=== PATIENT | female | born 1940 | race Caucasian/White ===

== ENCOUNTER 2021-04-02 00:52 | Inpatient (IN) | payer MEDICARE, OTHER ==
[~2021-04-02] VITALS: Ht 154.9 cm; Wt 50.2 kg
--- NOTE | 2021-04-02 00:52 | NUR ---
Patient BIBA from home. Found down by son. Per son, last seen normal a few hours ago. Per son, patient's only hx is of HTN which she refuses to take medication for. On arrival, patient unresponsive, GCS 3. Patient not maintaining airway well. Events as follows: 0050 18g LAC 0058 Defibrillation at 200J 0059 Defibrillation at 200J 0100 100mg Rocuronium, 20mg Etomidate 0107 7.0 ETT, 22cm at the teeth 0108 300mg Amiodarone IVP 0111 650mg APAP 0141 16f NG R nare 0148 16f ruelas catheter
[2021-04-02] MEDS ORDERED: ETOMIDATE 20 MG/10 ML ONE (01:00)
[2021-04-02] MEDS ORDERED: AMIODARONE 50 MG/ML, 3ML ONE (01:00)
[2021-04-02] MEDS ORDERED: PROPOFOL 10 MG/ML, 100ML IV ONE (01:00)
[2021-04-02] MEDS ORDERED: ROCURONIUM 10MG/ML,5ML ONE (01:00)
[2021-04-02] MEDS ORDERED: ACETAMINOPHEN 650 MG SUPP ONE (01:11)
--- NOTE | 2021-04-02 01:20 | NUR ---
Patient to CT. Spoke with son, Checo, and updated him on patient's status and plan of care. Advised patient that Dr. Chao would speak with him after CT result. Son understood.
[2021-04-02] MEDS ORDERED: ACETAMINOPHEN 650 MG SUPP PR ONE (01:30)
[2021-04-02] MEDS ORDERED: PLEASE ENTER HEIGHT AND WEIGHT MC SCH (01:30)
[2021-04-02] MEDS ORDERED: FILTER 0.22 MICRON IV ONE (01:30)
[2021-04-02] MEDS ORDERED: CEFTRIAXONE 1,000 MG in DEXTROSE 5% 50 ML IVPB ONE (01:30)
[2021-04-02] MEDS ORDERED: AMIODARONE 450 MG in DEXTROSE 5% 241 ML IV PRN (01:30)
[2021-04-02] MEDS ORDERED: PLEASE ENTER ALLERGIES MC SCH (01:30)
[2021-04-02 01:36] LABS: BASOPHILS % (AUTO) 1 % (0-1); EOSINOPHILS % (AUTO) 0 % (1-7); LYMPHOCYTES % (AUTO) 10 % (22-44); MEAN CORPUSCULAR HEMOGLOBIN 28.7 pg (27.0-34.8); MEAN CORPUSCULAR HGB CONC 32.5 g/dL (32.4-35.8); MEAN PLATELET VOLUME 7.3 fL (7.4-10.4); MONOCYTES % (AUTO) 5 % (2-9); NEUTROPHILS % (AUTO) 85 % (42-75); PLATELET COUNT 432 x10^3/uL (130-400); RED BLOOD COUNT 3.62 x10^6/uL (3.82-5.3); RED CELL DISTRIBUTION WIDTH 15.7 % (9.6-15.2)
[2021-04-02 01:56] LABS: ALANINE AMINOTRANSFERASE 19 U/L (12-78); ALBUMIN 3.1 g/dL (3.4-5.0); ANION GAP 9 mmol/L (5-15); CALCIUM 8.4 mg/dL (8.5-10.1); CHLORIDE 104 mmol/L (98-107)
[2021-04-02 01:59] LABS: ALKALINE PHOSPHATASE 124 U/L (45-117); BILIRUBIN,TOTAL 0.3 mg/dL (0.2-1.0); CREATINE KINASE, TOTAL 60 U/L (26-192); CREATININE 0.76 mg/dL (0.55-1.02); TOTAL PROTEIN 8.6 g/dL (6.4-8.2)
[2021-04-02] MEDS ORDERED: PROPOFOL 100 ML IV PRN ×2 (02:00→02:30)
[2021-04-02 02:01] LABS: TROPONIN I 0.268 ng/mL (0.000-0.045)
--- NOTE | 2021-04-02 02:05 | NUR ---
Dr. Chao updated son, Checo, about CT and options. It was decided that patient would be a DNR and put on comfort care. However, patient has a second son who was working and would be off work at 0700. In the meantime, patient is to remain intubated with Nicardipine and Amiodarone continuing. Son remains at bedside.
--- NOTE | 2021-04-02 02:20 | NUR ---
Dr. Allen, hospitalist, at bedside to discuss further POC with son. Propofol tbdc and Fentayl drip to be started.
[2021-04-02 02:26] LABS: INTERNATIONAL NORMALIZED RATIO 0.99 (0.93-1.1); PROTHROMBIN TIME 10.6 Seconds (9.6-11.5)
[2021-04-02] MEDS ORDERED: ONDANSETRON 2MG/ML, 2ML IVPush PRN ×2 (02:30→10:00)
[2021-04-02] MEDS ORDERED: FENTANYL PF 1,000 MCG in SODIUM CHLORIDE 0.9% 80 ML IV PRN (02:30)
[2021-04-02] MEDS ORDERED: LABETALOL 5MG/ML, 20ML IVPush PRN (02:30)
[2021-04-02] MEDS ORDERED: LIDOCAINE-MPF 1%, 2ML ENDO PRN (02:30)
[2021-04-02] MEDS ORDERED: morphine SULFATE 10 MG/ML, 1ML IVPush PRN (02:30)
[2021-04-02] MEDS ORDERED: PHARMACY MAY ADJ FOR RENAL FX MC SCH (02:30)
[2021-04-02] MEDS ORDERED: MIDAZOLAM 1 MG/ML, 2ML IVPush PRN (02:30)
[2021-04-02] MEDS ORDERED: ACETAMINOPHEN 650 MG SUPP PR PRN (02:30)
--- NOTE | 2021-04-02 03:59 | NUR ---
Moved patient to a CCU bed in TR01 for patient comfort. Son at bedside.
--- NOTE | 2021-04-02 05:15 | NUR ---
Son at bedside. No needs at this time.
--- NOTE | 2021-04-02 06:56 | NUR ---
Report to ROBERT Finch. Patient care transferred. Checo, son, advised that his brother would arrive around 0715.
--- NOTE | 2021-04-02 07:00 | NUR ---
assumed care of pt. report from Keshia JONES. pt here for resp. failure and brain bleed. per report pt was inubated early this AM D/T low GCS score. pt son at bedside is planning to withdraw care after the pending arrival of his brother. pt is currently intubated. vent settings: rate: A/C@14 tidal volume: 350 O2: 50% PEEP: 5 pt has nicardipine gtt, fentanyl gtt and amiodarone gtt running at this time. resting. no apparent distress pt is currently CCU hold
--- NOTE | 2021-04-02 07:20 | NUR ---
Dr. Hopkins at bedside
--- NOTE | 2021-04-02 07:58 | NUR ---
no changes. pt resting with son at bedside per TO from Dr. Hopkins, all gtts to continue pending possible organ donation discussion pharmacy notified that amiodarone gtt needed
--- NOTE | 2021-04-02 08:27 | NUR ---
pt other son Ángel at bedside. pt family updated on POC. pt family now requesting [facility] services. Emergency Care Attendant services contacted Dr Hopkins called
--- NOTE | 2021-04-02 09:09 | NUR ---
[facility] Chaplain Buenrostro at bedside
--- NOTE | 2021-04-02 09:25 | NUR ---
Palliative care at bedside
--- NOTE | 2021-04-02 09:40 | NUR ---
Dr Hopkins at bedside to discuss end of life care with sons at bedside
[2021-04-02] MEDS ORDERED: MORPHINE SULFATE 4 MG/ML, 1ML IVPush PRN (10:00)
[2021-04-02] MEDS ORDERED: MORPHINE 30MG/30ML PCA.SYR IV PRN (10:00)
[2021-04-02] MEDS ORDERED: LORazepam 2 MG/ML, 1ML IVPush PRN (10:00)
[2021-04-02] MEDS ORDERED: LORazepam 2 MG/ML, 1ML IV ONE (10:00)
[2021-04-02] MEDS ORDERED: MORPHINE SULFATE 4 MG/ML, 1ML IV ONE (10:00)
[2021-04-02] MEDS ORDERED: LORazepam 2 MG/ML, 1ML IVPush SCH (10:00)
[2021-04-02] MEDS ORDERED: ATROPINE OPHTH SOLN 1%, 5ML PO PRN (10:00)
--- NOTE | 2021-04-02 10:13 | NUR ---
[facility] contacted at [phone] spoke to Malik
--- NOTE | 2021-04-02 10:22 | NUR ---
referral #[id number] Malik Alfaro @ [facility] per [facility], OK to proceed with family eminent wishes of withdrawing care at this time
--- NOTE | 2021-04-02 10:25 | NUR ---
Berevement tray delivered to bedside. pt adrian Casillas and Ángel at bedside have been updated on POC. both agree to proceed with Comfort Care measures
[2021-04-02] MEDS ORDERED: ONDANSETRON 2MG/ML, 2ML ONE (10:28)
[2021-04-02] MEDS ORDERED: MORPHINE SULFATE 4 MG/ML, 1ML ONE ×2 (10:28→11:08)
[2021-04-02] MEDS ORDERED: LORazepam 2 MG/ML, 1ML ONE (10:28)
--- NOTE | 2021-04-02 10:30 | NUR ---
al IV gtts have been D/C
--- NOTE | 2021-04-02 10:45 | NUR ---
Rad RT at bedside for extubation. all monitoring equipment has been removed
--- NOTE | 2021-04-02 11:10 | NUR ---
entered room for medication administration and noted that pt was apneic and pulseless.
[2021-04-02 11:13] VITALS: BP 0/0
--- NOTE | 2021-04-02 11:13 | NUR ---
Time of verified by this RN and Karen Peter RN
--- NOTE | 2021-04-02 11:24 | NUR ---
Dr Hopkins notified of TOD
--- NOTE | 2021-04-02 11:25 | NUR ---
[phone] pt will not be a coronoer case and is cleared to be released to Home
--- NOTE | 2021-04-02 11:29 | NUR ---
spoke to Fabi at [facility] for update
--- NOTE | 2021-04-02 11:38 | NUR ---
spoke to Porter @ [facility] and [facility] @ [phone] to notify of and needed pickup. facility to call back with ETA spoke to Toney with [facility] and pt to be release, no pending tissue or organ harvest ankur be attempted
--- NOTE | 2021-04-02 11:55 | NUR ---
[employer] Set Up Operator Ximena has been notified of TOD and pending Mortuary Transfer
--- NOTE | 2021-04-02 11:57 | NUR ---
spoke to Mag @ [facility], pt to be picked up for transport at 1300
== END 2021-04-02 12:40 | DRG 64 ==
LOC: ED 01:00 → EDIP 02:20 → UNDOADMIN 02:54 → EDIP 02:54 → ED 12:40
PROVIDERS: ADMIT Internal Medicine; ATTEND Internal Medicine
PROC: 5A1935Z Respiratory Ventilation, Less than 24 Consecutive Hours (ICD-10-PCS; principal; 2021-04-02)
PROC: 0BH17EZ Insertion of Endotracheal Airway into Trachea, Via Natural or Artificial Opening (ICD-10-PCS; 2021-04-02)
DX: I61.9 Nontraumatic intracerebral hemorrhage, unspecified (principal); G93.41 Metabolic encephalopathy; J96.01 Acute respiratory failure with hypoxia; I21.4 Non-ST elevation (NSTEMI) myocardial infarction; J18.9 Pneumonia, unspecified organism; S06.2X9A Diffuse traumatic brain injury with loss of consciousness of unspecified duration, initial encounter; E87.2 Acidosis; I16.1 Hypertensive emergency; I10 Essential (primary) hypertension; D72.829 Elevated white blood cell count, unspecified; D63.8 Anemia in other chronic diseases classified elsewhere; D47.3 Essential (hemorrhagic) thrombocythemia; E87.6 Hypokalemia; R73.9 Hyperglycemia, unspecified; E88.09 Other disorders of plasma-protein metabolism, not elsewhere classified; Z66 Do not resuscitate; Y93.89 Activity, other specified; Y92.89 Other specified places as the place of occurrence of the external cause; Y99.8 Other external cause status
CPT/HCPCS: 31500; 36415; 36600; 70450; 71045; 80053; 82550; 82803; 83605; 83735; 84100; 84145; 84443; 84484; 85025; 85610; 87040; 93005; 94002; 94003; 96374; 96375; J2405; J2704; J3010; J7060; J0282; J2060; J2270; J7050